=== PATIENT | female | born 1935 | race Caucasian/White ===

== ENCOUNTER 2017-03-28 10:40 | Inpatient (IN) | payer MEDICARE ==
[2017-03-28] MEDS ORDERED: Sodium Chloride 0.9% 1,000 ML IV SCH (12:00)
--- NOTE | 2017-03-28 12:54 | HP ---
ADMITTING PHYSICIAN: Dr. Travis Grover CHIEF COMPLAINT: Postoperative bleeding left distal thigh. HISTORY OF PRESENT ILLNESS: Zonia is an 82-year-old white female who is in the subacute recovery phase of an open reduction internal fixation left distal femoral periprosthetic fracture utilizing a periarticular plate. She has been convalescing in a retirement for the last couple of weeks. Ap parently she had some swelling in the left thigh and her wound dehisced earlier this morning and she was taken to the emergency room in [place] where plain radiographs were obtained and after the bloo dy dehiscence was noted there was a screw head visible through the incision and proud by about 5 mm. She was transferred to [facility] where her surgery was performed a couple of weeks ago by Dr. Powell and Dr. Grover. We have been consulted to reevaluate and plain radi ographs accompany the patient which demonstrate failure of her distal construct to include varus ang ulation of the fracture site and backing out of locking screws. PAST MEDICAL HISTORY: Severe osteopenia, congestive heart failure, coronary valve disorder, hyperte nsion. PAST SURGICAL HISTORY: Most recent was an open reduction internal fixation of the left distal femor al periprosthetic fracture, total knee arthroplasty, cardiac pacemaker implantation and hysterectomy . REVIEW OF SYSTEMS: A recent sonogram performed in the emergency room demonstrated a DVT in the left lower extremity. She has not been walking, but she has been mobilizing with physical therapy in [facility] retirement. PHYSICAL EXAMINATION: GENERAL: An elderly female appearing stated age, in no apparent distress. She is alert and oriente d to person, place, time, and situation, and appropriate with examiner. HEENT: Head is normocephalic, atraumatic. HEART: Distant heart sounds, regular rate, no ectopy noted. ABDOMEN: Soft, benign. She has a midline sternotomy incision healed and closed. MUSCULOSKELETAL: Visual inspection of left lower extremity demonstrates her to have circumferential profound swelling noted from the inguinal crease distal to about mid calf. Her operative site has anna intact in the proximal most incisions, but her distal incision for fracture access demonstra katarzyna a 5 mm headset screw, proud about 5 mm. There is no active bleeding, but some scant drainage is noted. No gross erythema is appreciated. She is neurovascularly intact in the involved extremity. IMAGING STUDIES: From [facility] dated 03/28/2017 demonstrate fracture, failure with v arus angulation distally. She has backing out of all locking screws and 2 screws are proud from the plate indicative of non-lock. IMPRESSION: 1. Left distal femoral periprosthetic fracture, subacute failure. 2. Internal hardware failure. 3. Left lower extremity deep vein thrombosis. 4. Congestive heart failure. 5. Advanced age. PLAN: 1. The patient will be admitted to third floor. 2. The risks, benefits, options, alternatives, and rationale for proceeding with removal and explan tation of selected hardware to include the locking screws and possible closed manipulation, evacuati on of hematoma and a long leg immobilizer placement with consideration of a closed treatment plan at this point. 3. Please see orders.
--- NOTE | 2017-03-28 13:08 | ULT ---
LEFT LOWER EXTREMITY VENOUS DOPPLER ULTRASOUND EVALUATION: Date: 03/28/17 HISTORY: Patient with recent left lower extremity surgery. TECHNIQUE: Multiple longitudinal and transverse images of the left lower extremity venous system is obtained us ing a multihertz linear array transducer. Real-time, color flow, and spectral waveform Doppler irene sis used to evaluate the left lower extremity venous system. FINDINGS/IMPRESSION: There is noncompressible acute clot in the left common femoral, superficial femoral vein, and left p opliteal vein. No evidence of flow is seen. Findings concerning for acute left lower extremity clot. Below the knee, there is some flow seen in the deep venous system. It is noted that the images are mislabeled by the technologist. They actually are of the left lower extremity and were mislabeled as right. I rechecked with the technologist, Harry, who stated that ind eed he had scanned the left lower extremity and mislabeled them as right. Findings discussed with Dr. Jones at 1211 hours on 03/28/17. CODE CR. POS: DESTINEE
[2017-03-28 13:18] LABS: #Basophils 0.1 thou/uL (0.0-0.2); #Lymphocytes 1.7 thou/uL (1.20-3.40); #Monocytes 2.2 thou/uL (0.11-0.59); #Neutrophils 12.4 thou/uL (1.40-6.50); %Basophils 0.4 % (0.0-1.0); %Eosinophils 0.3 % (0.0-10.0); %Lymphocytes 10.1 % (21.0-51.0); %Monocytes 13.6 % (0.0-10.0); Mean Platelet Volume 7.9 fL (7.4-10.4); White Blood Cell (WBC) Count 16.4 thou/uL (4.8-10.8)
[2017-03-28 13:42] LABS: Anion Gap 17 mmol/L (10-20); BUN (Urea Nitrogen) 30 mg/dL (9.8-20.1); Calc. Creatinine Clearance 0 mL/min (70-130); Calcium 8.6 mg/dL (7.8-10.44); Carbon Dioxide 21 mmol/L (23-31); Chloride 100 mmol/L (98-107); Estimated GFR-MDRD 68
[2017-03-28 14:37] VITALS: BMI 30.4
[2017-03-28] MEDS ORDERED: Fentanyl 100 MCG/2 ML VIAL ONE (16:02)
--- NOTE | 2017-03-28 20:00 | CON ---
DATE OF ADMISSION: 03/28/2017 DATE OF CONSULTATION: 03/28/2017 ATTENDING PHYSICIAN: Travis Grover M.D. REASON FOR CONSULTATION: Evaluate patient for inferior vena cava filter. HISTORY OF PRESENT ILLNESS: Ms. Griffith is an 82-year-old woman who on 03/09/2017 underwent an O RIF of a left periprosthetic femur fracture. She has been convalescing in a penitentiary since that time. She presented with swelling of her leg and had dehiscence of the wound and dehiscence of the ORIF. She had ultrasound performed in the emergency department showing common femoral deep venous thrombosis. I have been asked to see her for vena cava filter placement. Currently, the patient is asymptomatic, resting comfortably on third floor in bed. PAST MEDICAL HISTORY: 1. Congestive heart failure. 2. Aortic stenosis. 3. Hypertension. 4. Osteoporosis. PAST SURGICAL HISTORY: 1. ORIF left femur. 2. Left total knee. 3. Pacemaker. 4. Hysterectomy. HOME MEDICATIONS: Noted. ALLERGIES: None. PHYSICAL EXAMINATION: GENERAL: This is an elderly, very frail appearing woman resting comfortably in bed. LUNGS: Clear bilaterally. HEART: Rhythm is regular. ABDOMEN: Soft and nontender. VASCULAR: She has palpable femoral pulses bilaterally, left leg is edematous, more so than the righ t. LABORATORY DATA: Her hemoglobin is 10.5, white blood cell count is 16.4, creatinine is 0.80, and po tassium is 5.0. ASSESSMENT AND PLAN: An 82-year-old woman with left distal femur fracture in need of further treatm ent. She also has a left deep vein thrombosis and is unable to be anticoagulated currently. She wi ll need manipulation of her left leg. I have suggested we place a permanent inferior vena cava filt er and she is agreeable to proceed tomorrow first thing in the morning.
[2017-03-28] MEDS: HYDROcodone/Acetaminophen 5/325 mg Tablet PO PRN (23:10)
[2017-03-29] MEDS ORDERED: Iopamidol 370 76% 50 ML VIAL FS ONE ×2 (00:53→16:51)
[2017-03-29] MEDS: traMADol HCl 50 MG TAB PO SCH ×4 (04:12→23:45)
[2017-03-29] MEDS: Acetaminophen 325 MG TAB PO SCH ×4 (04:12→23:45)
[2017-03-29] MEDS ORDERED: Alendronate Sodium 70 mg Tablet PO SCH (06:00)
--- NOTE | 2017-03-29 07:31 | OP ---
DATE OF PROCEDURE: 03/29/2017 PREOPERATIVE DIAGNOSIS: Left deep venous thrombosis with contraindication to anticoagulation. POSTOPERATIVE DIAGNOSIS: Left deep venous thrombosis with contraindication to anticoagulation. PROCEDURES: 1. Inferior vena cavogram. 2. Inferior vena cava filter placement -- TrapEase. SURGEON: Adalid Grossman M.D. CONTRAST: 8 mL. FLUORO TIME: 0.3 minutes. PROCEDURE IN DETAIL: After consent was obtained, the patient was brought to the Substation Manager, placed in supine position on the lab head table. Appropriate monitoring was placed. Groins were prepped and draped in usual sterile fashion. Using ultrasound guidance, the right groin was anesthetized with 1% lidocaine. Percutaneous access to the right common femoral vein was obtained with ultrasound arvind dance. Guidewire was passed into the upper vena cava. Vena caval sheath was then placed in the daisy a cava at the level of L4. Hand injected vena cavogram was performed. The renal veins were located at the L1-L2 junction. Vena cava measured less than 2.5 cm in diameter. The TrapEase filter was p ositioned with its tip at the L1-L2 junction. Filter was deployed and seated nicely. Sheath was re moved and manual pressure held for hemostasis. The patient tolerated the procedure well and was tra nsferred back to her room in stable condition.
[2017-03-29] MEDS ORDERED: MSM PO SCH (09:00)
[2017-03-29] MEDS ORDERED: CHONDROITIN PO SCH (09:00)
[2017-03-29] MEDS ORDERED: GLUCOSAMINE PO SCH (09:00)
[2017-03-29] MEDS: Meloxicam 15 MG TAB PO SCH (09:20)
[2017-03-29] MEDS: Polyethylene Glycol 3350 17 GM Packet PO SCH (09:21)
[2017-03-29] MEDS: Multivit, Therapeutic 1 TAB PO SCH (09:21)
[2017-03-29] MEDS: Mirtazapine 30 MG TAB PO SCH (09:21)
[2017-03-29] MEDS: Ferrous Fumarate 324 MG TAB PO SCH ×2 (09:21→17:30)
[2017-03-29] MEDS: Furosemide 20 MG TAB PO SCH (09:21)
[2017-03-29] MEDS: Senokot S 8.6-50 MG TAB PO SCH ×2 (09:22→20:10)
--- NOTE | 2017-03-29 12:14 | CON ---
DATE OF CONSULTATION: 03/29/2017 PRIMARY CARE PHYSICIAN: Dr. Sherwood in [place]. ADMITTING PHYSICIAN: Dr. Grover, Orthopedic Surgery. REASON FOR CONSULTATION: Medical management in a complicated patient. HISTORY OF PRESENT ILLNESS: The patient had open reduction and internal fixation of a traumatic dis [place] left femur on 03/09/2017. She had been convalescing in a facility. She was noted to have a ten indu, red, swollen left leg. She was evaluated and found to have deep vein thrombosis extensively in the left femoral system. She was also found to have screws protruding from the skin from the surge ry. Due to the risk of bleeding with further surgeries an IVC filter had been placed by Dr. Adalid Grossman 03/29/2017. The patient currently complains of the pain, swelling, and redness in her left lower leg from the knee down. She has had no signs and symptoms of a pulmonary embolus including no chest pain, shortness of breath, hemoptysis. PAST MEDICAL HISTORY: Includes aortic stenosis, post-aortic valve replacement, atrial fibrillation, status post pacemaker placement, history of breast cancer, post-reduction chemotherapy carotid sten osis, osteoarthritis, hypertension, dyslipidemia. PAST SURGICAL HISTORY: Includes bilateral carotid endarterectomy, total knee arthroplasty bilateral ly, aortic valve replacement, breast lumpectomy, pacemaker placement. CURRENT MEDICATIONS: At the time of admission, tramadol 100 mg p.o. q.6 h. p.r.n., Zocor 40 mg at b edtime, MiraLax 17 grams daily p.r.n., Remeron 30 mg a day, metoprolol 25 mg a day, Meloxicam 15 mg a day, gabapentin 100 mg at bedtime, Lasix 20 mg a day, ferrous sulfate 325 mg p.o. b.i.d., alendron ate 70 mg q.7 days. ALLERGIES: No known drug allergies. FAMILY HISTORY: Mother of cancer, father of congestive heart failure. She has had 3 brot hers of coronary artery disease. SOCIAL HISTORY: x20 years. No tobacco. She drinks beer and wine occasionally. REVIEW OF SYSTEMS: GENERAL: No headaches, dizziness, fainting, no fever or chills. EYES: No double vision, blurred vision, flashing lights. ENT: No ear pain or drainage. No nasal bleeding. No trouble swallowing. CARDIAC: No chest pain, orthopnea or paroxysmal nocturnal dyspnea. RESPIRATORY: No cough, wheezing or asthma. GASTROINTESTINAL: No nausea, vomiting, abdominal pain, diarrhea or constipation at this time, altho ugh she has taken laxatives for constipation when on pain medicines. GENITOURINARY: No hematuria or dysuria. MUSCULOSKELETAL: Pain and swelling in her left lower leg with a wound on her area of her knee from protruding hardware. NEUROLOGIC: No strokes, seizures or focal weakness. PSYCHIATRIC: No anxiety or depression. SKIN: No bruising, bleeding or rash. HEME/LYMPH: No tender or swollen lymph nodes in axilla, inguinal or cervical area. PHYSICAL EXAMINATION: VITAL SIGNS: Temperature 97.7, pulse 80 plus or minus, respirations 12-20, blood pressure 117/69 to -102/64. GENERAL: Alert, oriented, pleasant, cooperative, in no distress. HEENT: Reveal pupils equal, round, and reactive to light. Extraocular movements are intact. Scler ae white. Tympanic membranes clear. Nose clear. Oral mucous membranes are wet. There are multipl e missing teeth. NECK: Supple, without jugular venous distention, adenopathy or thyromegaly. CHEST: Clear to auscultation and percussion. HEART: Regular rate and rhythm. First and second heart sounds were clear. There is a 3/6 murmur a cross the left sternum. ABDOMEN: Soft, bowel sounds are normal. There is no hepatosplenomegaly, no mass, no rebound. EXTREMITIES: Upper extremities reveal no cyanosis, clubbing or edema. Lower extremities, right leg : No cyanosis, clubbing or edema. Left leg revealed a nonpitting edema from the foot to the knee w ith some mild tenderness and erythema. PULSES: Carotid, radial, femoral pulses are intact. Right pedal pulse was palpable. Left pedal pu lse was difficultly palpable through the edema. SKIN: Warm and dry. There is an open lesion about her left knee and mild erythema of the skin of h er left lower leg. HEME/LYMPH: No tender or swollen lymph nodes in axilla, inguinal or cervical area. NEUROLOGICAL: Cranial nerves II-XII are intact. Moves all extremities. Sensation is intact. X-RAY FINDINGS: EKG which reveals atrial sensing and ventricular pacing dual chamber pacemaker revi ewed by myself. Vascular ultrasound reveals left DVT. LABORATORY: CBC: Elevated white count 16.4, hemoglobin 10.5, platelet count 231,000. Sodium was 1 33, potassium 5.0, CO2 is 21, BUN 30, creatinine 0.8, blood sugar 97. ADMITTING DIAGNOSES: 1. Deep venous thrombosis. 2. Three weeks post open reduction and internal fixation of traumatic fracture of the left distal f emur. 3. Aortic stenosis with prosthetic aortic valve. 4. Atrial fibrillation. 5. Pacemaker. 6. Dyslipidemia. 7. Breast cancer post-lumpectomy and radiation. PLAN: Difficult situation. The patient with high risk for pulmonary emboli from left DVT. A left IVC filter has been placed so that the intended anticoagulation can be delayed while continuing work is done on the hardware. She will be continued on selected home medicines. We will monitor her cl osely. Thank you for the consult.
[2017-03-29] MEDS: Gabapentin 100 MG CAP PO SCH (20:11)
[2017-03-29] MEDS: Atorvastatin Calcium 20 MG TAB PO SCH (20:11)
[2017-03-30] MEDS: Acetaminophen 325 MG TAB PO SCH ×3 (06:27→18:08)
[2017-03-30] MEDS: traMADol HCl 50 MG TAB PO SCH ×3 (06:27→18:07)
[2017-03-30 07:16] LABS: #Basophils 0.1 thou/uL (0.0-0.2); #Eosinphils 0.8 thou/uL (0.0-0.7); #Lymphocytes 1.4 thou/uL (1.20-3.40); #Monocytes 1.9 thou/uL (0.11-0.59); #Neutrophils 9.5 thou/uL (1.40-6.50); %Basophils 0.4 % (0.0-1.0); %Eosinophils 5.6 % (0.0-10.0); %Lymphocytes 10.5 % (21.0-51.0); %Monocytes 13.8 % (0.0-10.0); Hematocrit 28.6 % (36.0-47.0); Mean Platelet Volume 8.4 fL (7.4-10.4); Red Blood Cell (RBC) Count 2.96 mill/uL (4.20-5.40); White Blood Cell (WBC) Count 13.6 thou/uL (4.8-10.8)
[2017-03-30 07:35] LABS: Polychromasia SLIGHT = 2-3 cells (100X) (0-2/hpf)
[2017-03-30] MEDS ORDERED: Fentanyl 100 MCG/2 ML VIAL ONE ×2 (08:59→12:19)
--- NOTE | 2017-03-30 09:29 | PDOC.PN ---
- Subjective Encounter Start Date: 03/30/17 Encounter Start Time: 15:26 Subjective: post op, some post anesthesia confusion - Objective Vital Signs & Weight: Vital Signs (12 hours) Temp Pulse Resp BP Pulse Ox 03/30/17 04:29 97.9 F 91 18 110/73 100 03/29/17 23:55 97.6 F 84 19 107/67 100 Weight Weight 199 lb 15.348 oz I&O: 03/29/17 03/30/17 03/31/17 06:59 06:59 06:59 Intake Total 700 2080 Output Total 600 725 Balance 100 1355 Result Diagrams: 03/30/17 06:47 03/28/17 13:11 Phys Exam - Physical Examination Constitutional: NAD Neck: no JVD Respiratory: clear to auscultation bilateral Cardiovascular: RRR 3/6 sys murmur Gastrointestinal: soft, positive bowel sounds Musculoskeletal: edema present Dx/Plan (1) DVT (deep venous thrombosis) Code(s): I82.409 - ACUTE EMBOLISM AND THOMBOS UNSP DEEP VN UNSP LOWER EXTREMITY Status: Acute Qualifiers: DVT location: lower extremity Affected thrombotic vein of extremity: femoral Chronicity: acute Laterality: left Qualified Code(s): I82.412 - Acute embolism and thrombosis of left femoral vein (2) HTN (hypertension) Code(s): I10 - ESSENTIAL (PRIMARY) HYPERTENSION Status: Chronic Qualifiers: Hypertension type: essential hypertension Qualified Code(s): I10 - Essential (primary) hypertension (3) Aortic stenosis Code(s): I35.0 - NONRHEUMATIC AORTIC (VALVE) STENOSIS Status: Chronic Qualifiers: Cardiac valve disease etiology: etiology unspecified Qualified Code(s): I35.0 - Nonrheumatic aortic (valve) stenosis (4) H/O prosthetic aortic valve replacement Code(s): Z95.2 - PRESENCE OF PROSTHETIC HEART VALVE Status: Chronic (5) Dyslipidemia Code(s): E78.5 - HYPERLIPIDEMIA, UNSPECIFIED Status: Chronic (6) S/P IVC filter Status: Acute - Plan SP removal of ORIF hardware L femur, some agitation, will monitor -: cont selected home meds -: discuss anticoag with ortho * .
[2017-03-30] MEDS: Ferrous Fumarate 324 MG TAB PO SCH ×2 (09:46→18:17)
[2017-03-30] MEDS: Meloxicam 15 MG TAB PO SCH (09:46)
[2017-03-30] MEDS: Senokot S 8.6-50 MG TAB PO SCH ×2 (09:47→20:59)
[2017-03-30] MEDS: Mirtazapine 30 MG TAB PO SCH (09:47)
[2017-03-30] MEDS: Multivit, Therapeutic 1 TAB PO SCH (09:47)
[2017-03-30] MEDS: Furosemide 20 MG TAB PO SCH (09:47)
[2017-03-30] MEDS: Polyethylene Glycol 3350 17 GM Packet PO SCH (09:47)
[2017-03-30] MEDS ORDERED: Propofol 200 MG/20 ML VIAL ONE (10:25)
[2017-03-30] MEDS ORDERED: Ondansetron HCl/PF 4 MG/2 ML Vial ONE (10:25)
[2017-03-30] MEDS ORDERED: Dexamethasone 20 MG/5 ML VIAL ONE (10:25)
[2017-03-30] MEDS ORDERED: Lidocaine 1% PF 5 ML VIAL ONE (10:25)
--- NOTE | 2017-03-30 14:39 | OP ---
DATE OF OPERATION: 03/30/2017 OPERATIONS: 1. Left femur hardware removal. 2. Irrigation and debridement of left thigh wound. PREOPERATIVE DIAGNOSIS: Left distal femur fracture with hardware loosening and wound drainage. POSTOPERATIVE DIAGNOSIS: Left distal femur fracture with hardware loosening and wound drainage. COMPLICATIONS: None. ESTIMATED BLOOD LOSS: 150 mL SURGEON: Thomas Powell M.D. [employer] UNIT OPERATOR: Josh Sung PA-C INDICATIONS: Ms. Griffith is an 82-year-old female who sustained a fall several weeks ago. She f ractured her distal femur above a total knee arthroplasty. She was treated initially with open redu ction internal fixation using a lateral plate. Unfortunately, her lateral plate has loosened and sh elkin has developed loss of fixation with wound drainage. She has been indicated now for the above proc edures to relieve pain and remove loose and hardware to prevent any further complication. Risks hav e been reviewed in detail. She has elected to proceed with the operation. DESCRIPTION OF PROCEDURE: Ms. Griffith was identified in the preoperative holding area. Her alfredo ect extremity was marked. She was carried to the operating room. She was positioned supine. Gener al anesthesia was induced. A multidisciplinary timeout was performed. The left lower extremity was prepped and draped in sterile fashion. We began the procedure with by extending the patient's distal wound. We worked deeply down to the f ascia, which was opened. We then exposed the underlying plate and loosened distal femoral screws. We removed all the distal screws using appropriate screwdriver. We then removed the proximal screws throughout the plate using small percutaneous incisions and x-ray guidance. All screws were remove d. We then removed the distal femoral plate from the wound. At this point, we thoroughly irrigated with copious lavage. We then took x-ray images once more confirming that the bone was in adequate alignment. After final debridement, we closed with #1 Vicryl suture, 2-0 Vicryl suture and nylon mix tures for the skin. A sterile dressing was applied. The patient was taken to the recovery room in good condition without complication at this point.
--- NOTE | 2017-03-30 14:47 | RAD ---
2 VIEWS LEFT FEMUR: Date: 03/30/17 COMPARISON: 03/09/17. FINDINGS/IMPRESSION: A single limited intraoperative fluoroscopic view of the left femur was submitted for interpretation . The previously seen screws along the femoral plate have been removed, except for the proximal most screw. POS: DESTINEE
[2017-03-30] MEDS: HYDROcodone/Acetaminophen 5/325 mg Tablet PO PRN (15:01)
--- NOTE | 2017-03-30 18:19 | PDOC.EVN ---
Event Note - Event Note Event Note: post anesthesiaconfusion resolved., without tx
[2017-03-30] MEDS: Gabapentin 100 MG CAP PO SCH (20:59)
[2017-03-30] MEDS: Atorvastatin Calcium 20 MG TAB PO SCH (20:59)
[2017-03-30] MEDS: Enoxaparin Sodium 30 MG/0.3 ML SYRINGE SC SCH (20:59)
[2017-03-31] MEDS: Acetaminophen 325 MG TAB PO SCH ×4 (00:09→18:06)
[2017-03-31] MEDS: traMADol HCl 50 MG TAB PO SCH ×4 (00:09→18:06)
[2017-03-31 06:05] LABS: Hematocrit 23.3 % (36.0-47.0)
[2017-03-31 06:18] LABS: Anion Gap 14 mmol/L (10-20); BUN (Urea Nitrogen) 25 mg/dL (9.8-20.1); Calc. Creatinine Clearance 84 mL/min (70-130); Calcium 8.1 mg/dL (7.8-10.44); Carbon Dioxide 22 mmol/L (23-31); Chloride 106 mmol/L (98-107); Estimated GFR-MDRD 78
[2017-03-31] MEDS: Enoxaparin Sodium 30 MG/0.3 ML SYRINGE SC SCH ×2 (09:43→20:33)
[2017-03-31] MEDS: Furosemide 20 MG TAB PO SCH (09:43)
[2017-03-31] MEDS: Mirtazapine 30 MG TAB PO SCH (09:44)
[2017-03-31] MEDS: Multivit, Therapeutic 1 TAB PO SCH (09:44)
[2017-03-31] MEDS: Senokot S 8.6-50 MG TAB PO SCH ×2 (09:44→20:34)
[2017-03-31] MEDS: Meloxicam 15 MG TAB PO SCH (09:45)
[2017-03-31] MEDS: HYDROcodone/Acetaminophen 5/325 mg Tablet PO PRN ×2 (09:45→15:50)
[2017-03-31] MEDS: Ferrous Fumarate 324 MG TAB PO SCH ×2 (09:45→18:06)
[2017-03-31] MEDS: Polyethylene Glycol 3350 17 GM Packet PO SCH (09:47)
--- NOTE | 2017-03-31 11:42 | PDOC.PN ---
- Subjective Encounter Start Date: 03/31/17 Encounter Start Time: 11:40 Subjective: no fever, sob - Objective MAR Reviewed: Yes Vital Signs & Weight: Vital Signs (12 hours) Temp Pulse Pulse Resp BP BP Pulse Ox 03/31/17 10:38 97.5 F L 76 16 104/62 03/31/17 10:32 97.8 F 76 16 124/72 100 03/31/17 07:00 98.8 F 76 18 124/72 100 03/31/17 04:00 98.7 F 72 19 99/61 96 03/31/17 00:00 98.7 F 76 18 90/51 L 99 Weight Weight 199 lb 15.348 oz I&O: 03/30/17 03/31/17 04/01/17 06:59 06:59 06:59 Intake Total 2080 400 0 Output Total 725 820 Balance 1355 -420 0 Result Diagrams: 03/31/17 05:36 03/31/17 05:36 Phys Exam - Physical Examination Constitutional: NAD Neck: no JVD Respiratory: clear to auscultation bilateral Cardiovascular: RRR 3/6 sys murmur Gastrointestinal: soft, positive bowel sounds Musculoskeletal: no edema Dx/Plan (1) DVT (deep venous thrombosis) Code(s): I82.409 - ACUTE EMBOLISM AND THOMBOS UNSP DEEP VN UNSP LOWER EXTREMITY Status: Acute Qualifiers: DVT location: lower extremity Affected thrombotic vein of extremity: femoral Chronicity: acute Laterality: left Qualified Code(s): I82.412 - Acute embolism and thrombosis of left femoral vein (2) HTN (hypertension) Code(s): I10 - ESSENTIAL (PRIMARY) HYPERTENSION Status: Chronic Qualifiers: Hypertension type: essential hypertension Qualified Code(s): I10 - Essential (primary) hypertension (3) Aortic stenosis Code(s): I35.0 - NONRHEUMATIC AORTIC (VALVE) STENOSIS Status: Chronic Qualifiers: Cardiac valve disease etiology: etiology unspecified Qualified Code(s): I35.0 - Nonrheumatic aortic (valve) stenosis (4) H/O prosthetic aortic valve replacement Code(s): Z95.2 - PRESENCE OF PROSTHETIC HEART VALVE Status: Chronic (5) Dyslipidemia Code(s): E78.5 - HYPERLIPIDEMIA, UNSPECIFIED Status: Chronic (6) S/P IVC filter Status: Acute (7) Anemia, blood loss Code(s): D50.0 - IRON DEFICIENCY ANEMIA SECONDARY TO BLOOD LOSS (CHRONIC) Status: Acute - Plan transfusion PRBC per ortho -: jigna byers -: will follow * .
[2017-03-31] MEDS: Atorvastatin Calcium 20 MG TAB PO SCH (20:33)
[2017-03-31] MEDS: Gabapentin 100 MG CAP PO SCH (20:34)
[2017-03-31] MEDS ORDERED: Enoxaparin Sodium 40 MG/0.4 ML SYRINGE SC SCH (21:00)
[2017-04-01] MEDS: Acetaminophen 325 MG TAB PO SCH ×4 (00:47→18:18)
[2017-04-01] MEDS: traMADol HCl 50 MG TAB PO SCH ×4 (00:48→18:18)
[2017-04-01 06:19] LABS: #Eosinphils 0.5 thou/uL (0.0-0.7); #Lymphocytes 1.7 thou/uL (1.20-3.40); #Monocytes 1.1 thou/uL (0.11-0.59); #Neutrophils 4.9 thou/uL (1.40-6.50); %Basophils 0.3 % (0.0-1.0); %Eosinophils 6.1 % (0.0-10.0); %Lymphocytes 20.8 % (21.0-51.0); %Monocytes 13.2 % (0.0-10.0); Hematocrit 25.6 % (36.0-47.0); Mean Platelet Volume 7.3 fL (7.4-10.4); Red Blood Cell (RBC) Count 2.65 mill/uL (4.20-5.40); White Blood Cell (WBC) Count 8.2 thou/uL (4.8-10.8)
[2017-04-01] MEDS: Ferrous Fumarate 324 MG TAB PO SCH ×2 (08:00→18:18)
[2017-04-01] MEDS: Mirtazapine 30 MG TAB PO SCH (09:58)
[2017-04-01] MEDS: Meloxicam 15 MG TAB PO SCH (09:58)
[2017-04-01] MEDS: Multivit, Therapeutic 1 TAB PO SCH (10:00)
[2017-04-01] MEDS: Senokot S 8.6-50 MG TAB PO SCH ×2 (10:00→20:12)
[2017-04-01] MEDS: Furosemide 20 MG TAB PO SCH (10:00)
[2017-04-01] MEDS: Enoxaparin Sodium 30 MG/0.3 ML SYRINGE SC SCH ×2 (10:01→20:36)
[2017-04-01] MEDS: Polyethylene Glycol 3350 17 GM Packet PO SCH (10:01)
--- NOTE | 2017-04-01 12:06 | PDOC.PN ---
- Subjective Encounter Start Date: 04/01/17 Encounter Start Time: 12:01 Subjective: no chest pain, sob, fever - Objective MAR Reviewed: Yes Vital Signs & Weight: Vital Signs (12 hours) Temp Pulse Resp BP Pulse Ox 04/01/17 07:24 97.9 F 78 14 108/65 100 04/01/17 04:21 97.4 F L 75 12 107/68 100 Weight Weight 199 lb 15.348 oz I&O: 03/31/17 04/01/17 04/02/17 06:59 06:59 06:59 Intake Total 400 841 Output Total 820 1650 Balance -420 -809 Result Diagrams: 04/01/17 06:04 03/31/17 05:36 Phys Exam - Physical Examination Constitutional: NAD Neck: no JVD Respiratory: clear to auscultation bilateral Cardiovascular: RRR Gastrointestinal: soft, positive bowel sounds Musculoskeletal: no edema Dx/Plan (1) DVT (deep venous thrombosis) Code(s): I82.409 - ACUTE EMBOLISM AND THOMBOS UNSP DEEP VN UNSP LOWER EXTREMITY Status: Acute Qualifiers: DVT location: lower extremity Affected thrombotic vein of extremity: femoral Chronicity: acute Laterality: left Qualified Code(s): I82.412 - Acute embolism and thrombosis of left femoral vein (2) HTN (hypertension) Code(s): I10 - ESSENTIAL (PRIMARY) HYPERTENSION Status: Chronic Qualifiers: Hypertension type: essential hypertension Qualified Code(s): I10 - Essential (primary) hypertension (3) Aortic stenosis Code(s): I35.0 - NONRHEUMATIC AORTIC (VALVE) STENOSIS Status: Chronic Qualifiers: Cardiac valve disease etiology: etiology unspecified Qualified Code(s): I35.0 - Nonrheumatic aortic (valve) stenosis (4) H/O prosthetic aortic valve replacement Code(s): Z95.2 - PRESENCE OF PROSTHETIC HEART VALVE Status: Chronic (5) Dyslipidemia Code(s): E78.5 - HYPERLIPIDEMIA, UNSPECIFIED Status: Chronic (6) S/P IVC filter Status: Acute (7) Anemia, blood loss Code(s): D50.0 - IRON DEFICIENCY ANEMIA SECONDARY TO BLOOD LOSS (CHRONIC) Status: Acute - Plan on lovenox, discuss full anticoag with ortho -: post ivc filter -: cont lipitor , lasix, metoprolol * .
[2017-04-01] MEDS: Atorvastatin Calcium 20 MG TAB PO SCH (20:12)
[2017-04-01] MEDS: Gabapentin 100 MG CAP PO SCH (20:12)
[2017-04-02] MEDS: Acetaminophen 325 MG TAB PO SCH ×5 (01:09→23:46)
[2017-04-02] MEDS: traMADol HCl 50 MG TAB PO SCH ×5 (01:10→23:46)
[2017-04-02 05:53] LABS: #Eosinphils 0.6 thou/uL (0.0-0.7); #Lymphocytes 1.2 thou/uL (1.20-3.40); #Neutrophils 4.9 thou/uL (1.40-6.50); %Basophils 0.6 % (0.0-1.0); %Eosinophils 8.3 % (0.0-10.0); %Lymphocytes 15.5 % (21.0-51.0); %Monocytes 12.8 % (0.0-10.0); Hematocrit 24.8 % (36.0-47.0); Mean Platelet Volume 7.2 fL (7.4-10.4); Red Blood Cell (RBC) Count 2.56 mill/uL (4.20-5.40); White Blood Cell (WBC) Count 7.8 thou/uL (4.8-10.8)
[2017-04-02] MEDS ORDERED: Morphine Sulfate 2 MG/ML SYRINGE SLOW IVP PRN (09:11)
[2017-04-02] MEDS: Ferrous Fumarate 324 MG TAB PO SCH ×2 (09:34→17:19)
[2017-04-02] MEDS: Meloxicam 15 MG TAB PO SCH (09:34)
[2017-04-02] MEDS: Multivit, Therapeutic 1 TAB PO SCH (09:34)
[2017-04-02] MEDS: Mirtazapine 30 MG TAB PO SCH (09:34)
[2017-04-02] MEDS: Polyethylene Glycol 3350 17 GM Packet PO SCH (09:35)
[2017-04-02] MEDS: Enoxaparin Sodium 30 MG/0.3 ML SYRINGE SC SCH (09:35)
[2017-04-02] MEDS: Furosemide 20 MG TAB PO SCH (09:35)
[2017-04-02] MEDS: Senokot S 8.6-50 MG TAB PO SCH ×2 (09:36→20:28)
--- NOTE | 2017-04-02 11:37 | PDOC.PN ---
- Subjective Encounter Start Date: 04/02/17 Encounter Start Time: 11:34 Subjective: doing well - Objective MAR Reviewed: Yes Vital Signs & Weight: Vital Signs (12 hours) Temp Pulse Resp BP Pulse Ox 04/02/17 08:01 98.9 F 88 18 04/02/17 08:00 98.9 F 88 18 98/59 L 97 04/02/17 04:00 98.5 F 90 20 120/67 99 04/02/17 00:00 98.2 F 89 16 118/69 100 Weight Weight 199 lb 15.348 oz I&O: 04/01/17 04/02/17 04/03/17 06:59 06:59 06:59 Intake Total 841 920 Output Total 1650 700 Balance -809 220 Result Diagrams: 04/02/17 05:30 03/31/17 05:36 Phys Exam - Physical Examination Constitutional: NAD Neck: no JVD Respiratory: clear to auscultation bilateral Cardiovascular: RRR, no significant murmur Gastrointestinal: soft, positive bowel sounds Musculoskeletal: edema present Dx/Plan (1) DVT (deep venous thrombosis) Code(s): I82.409 - ACUTE EMBOLISM AND THOMBOS UNSP DEEP VN UNSP LOWER EXTREMITY Status: Acute Qualifiers: DVT location: lower extremity Affected thrombotic vein of extremity: femoral Chronicity: acute Laterality: left Qualified Code(s): I82.412 - Acute embolism and thrombosis of left femoral vein (2) HTN (hypertension) Code(s): I10 - ESSENTIAL (PRIMARY) HYPERTENSION Status: Chronic Qualifiers: Hypertension type: essential hypertension Qualified Code(s): I10 - Essential (primary) hypertension (3) Aortic stenosis Code(s): I35.0 - NONRHEUMATIC AORTIC (VALVE) STENOSIS Status: Chronic Qualifiers: Cardiac valve disease etiology: etiology unspecified Qualified Code(s): I35.0 - Nonrheumatic aortic (valve) stenosis (4) H/O prosthetic aortic valve replacement Code(s): Z95.2 - PRESENCE OF PROSTHETIC HEART VALVE Status: Chronic (5) Dyslipidemia Code(s): E78.5 - HYPERLIPIDEMIA, UNSPECIFIED Status: Chronic (6) S/P IVC filter Status: Acute (7) Anemia, blood loss Code(s): D50.0 - IRON DEFICIENCY ANEMIA SECONDARY TO BLOOD LOSS (CHRONIC) Status: Acute - Plan cont home meds -: on lovenox, start eliquis or xarelto when ok with ortho * .
[2017-04-02] MEDS: Atorvastatin Calcium 20 MG TAB PO SCH (20:28)
[2017-04-02] MEDS: Gabapentin 100 MG CAP PO SCH (20:28)
[2017-04-02] MEDS ORDERED: Apixaban 5 MG TAB PO SCH (21:00)
[2017-04-03] MEDS: HYDROcodone/Acetaminophen 5/325 mg Tablet PO PRN (03:39)
[2017-04-03] MEDS: traMADol HCl 50 MG TAB PO SCH (05:42)
[2017-04-03] MEDS: Acetaminophen 325 MG TAB PO SCH (05:42)
[2017-04-03 06:13] LABS: #Eosinphils 0.5 thou/uL (0.0-0.7); #Lymphocytes 1.3 thou/uL (1.20-3.40); #Monocytes 0.9 thou/uL (0.11-0.59); #Neutrophils 5.2 thou/uL (1.40-6.50); %Basophils 0.2 % (0.0-1.0); %Eosinophils 6.6 % (0.0-10.0); %Lymphocytes 16.7 % (21.0-51.0); Hematocrit 25.8 % (36.0-47.0); White Blood Cell (WBC) Count 7.9 thou/uL (4.8-10.8)
[2017-04-03 06:40] LABS: Anion Gap 10 mmol/L (10-20); BUN (Urea Nitrogen) 12 mg/dL (9.8-20.1); Calc. Creatinine Clearance 102 mL/min (70-130); Calcium 8.7 mg/dL (7.8-10.44); Carbon Dioxide 27 mmol/L (23-31); Chloride 105 mmol/L (98-107); Estimated GFR-MDRD Greater than 90
[2017-04-03 09:14] VITALS: BP 131/74; TEMP 97.9
--- NOTE | 2017-04-03 11:27 | PDOC.PN ---
- Subjective Encounter Start Date: 04/03/17 Encounter Start Time: 08:00 Subjective: feels better, was sob last night - Objective MAR Reviewed: Yes Vital Signs & Weight: Vital Signs (12 hours) Temp Pulse Resp BP Pulse Ox 04/03/17 09:13 97.9 F 71 16 131/74 100 04/03/17 04:05 98.4 F 82 16 122/71 99 04/03/17 00:00 97.8 F 88 16 118/75 98 Weight Weight 199 lb 15.348 oz I&O: 04/02/17 04/03/17 04/04/17 06:59 06:59 06:59 Intake Total 920 960 Output Total 700 1300 Balance 220 -340 Result Diagrams: 04/03/17 05:55 04/03/17 05:55 Additional Labs: Accuchecks 04/02/17 18:07 POC Glucose 127 H Phys Exam - Physical Examination HEENT: PERRLA, moist MMs Neck: no JVD, supple Respiratory: no wheezing, no rales Cardiovascular: RRR, no significant murmur Gastrointestinal: soft, non-tender, positive bowel sounds Musculoskeletal: pulses present left LE in splint Neurological: non-focal, moves all 4 limbs Psychiatric: A&O x 3 Dx/Plan (1) Anemia, blood loss Code(s): D50.0 - IRON DEFICIENCY ANEMIA SECONDARY TO BLOOD LOSS (CHRONIC) Status: Acute (2) DVT (deep venous thrombosis) Code(s): I82.409 - ACUTE EMBOLISM AND THOMBOS UNSP DEEP VN UNSP LOWER EXTREMITY Status: Acute Qualifiers: DVT location: lower extremity Affected thrombotic vein of extremity: femoral Chronicity: acute Laterality: left Qualified Code(s): I82.412 - Acute embolism and thrombosis of left femoral vein (3) S/P IVC filter Status: Acute (4) Aortic stenosis Code(s): I35.0 - NONRHEUMATIC AORTIC (VALVE) STENOSIS Status: Chronic Qualifiers: Cardiac valve disease etiology: etiology unspecified Qualified Code(s): I35.0 - Nonrheumatic aortic (valve) stenosis (5) Dyslipidemia Code(s): E78.5 - HYPERLIPIDEMIA, UNSPECIFIED Status: Chronic (6) H/O prosthetic aortic valve replacement Code(s): Z95.2 - PRESENCE OF PROSTHETIC HEART VALVE Status: Chronic (7) HTN (hypertension) Code(s): I10 - ESSENTIAL (PRIMARY) HYPERTENSION Status: Chronic Qualifiers: Hypertension type: essential hypertension Qualified Code(s): I10 - Essential (primary) hypertension - Plan is being discharged to [facility] this morning -: to continue eliquis bid -: PT/OT per ortho advice * .
--- NOTE | 2017-04-03 22:31 | DIS ---
DATE OF ADMISSION: 03/28/2017 DATE OF DISCHARGE: 04/03/2017 DISCHARGE DISPOSITION: To [facility]. PRIMARY DISCHARGE DIAGNOSES: Acute blood loss anemia, deep vein thrombosis in the left lower extremity, status post IVC filter, history of prosthetic aortic valve with stenosis, hypertension, dyslipidemia, recent left femoral periprosthetic fracture with repair with postop bleeding. PROCEDURES DONE DURING HOSPITALIZATION: The patient has had ultrasound venous Doppler done of left lower extremity, which showed extensive DVT. IVC filter was placed by Dr. Adalid Grossman on 03/29/2017. The patient has had left femur hardware removed with irrigation and debridement of left thigh wound done on by Dr. Powell. Discharge H and H 8 and 25, platelet count is 394. Discharge BUN and creatinine is 12 and 0.5. DISCHARGE MEDICATIONS: Alendronate 70 mg p.o. once weekly, Eliquis 5 mg p.o. twice daily, ferrous sulfate 325 mg p.o. twice daily, Lasix 20 mg p.o. daily, gabapentin 100 mg p.o. at bedtime, [place] p.r.n. for pain, Toprol-XL 25 mg daily , mirtazapine 30 mg p.o. daily, multivitamin 1 tab once daily, MiraLax 17 grams p.o. daily, Zocor 40 mg p.o. at bedtime, Ultram p.r.n. for pain. ALLERGIES: No known drug allergies. DISCHARGE PLAN: Patient to follow up with Dr. Powell as advised. BRIEF COURSE DURING HOSPITALIZATION: The patient initially got admitted on the after she was sent over for bleeding in her left distal thigh. She has had ORIF done for left distal periprosthetic fracture in the last few weeks by Dr. Powell. She also was found to have had visible screws. In view of this and left lower extremity edema, she was admitted to medical floor. She has had ultrasound venous Doppler of left lower extremity done, which showed extensive DVT. She has had hardware removal done by Dr. Powell and IVC filter was also placed due to her current postop situation with extensive DVT and poor functional status. She was placed on Eliquis twice daily. [facility] and will be shortly discharged. She needs to follow up with Dr. Powell as advised. She also needs to follow up with primary care physician in 1 week. Please see face to face documentation on [facility] for the day of discharge. NATASHAD
[2017-04-05] MEDS ORDERED: Alendronate Sodium 70 mg Tablet PO SCH (06:00)
--- NOTE | 2017-04-06 20:10 | PQF ---
MICHEL REEDER ANTHONY, MD [id number] [facility] [phone] [id number] CLINICAL DOCUMENTATION CLARIFICATION FORM: POST DISCHARGE PLEASE FAX RESPONSE BACK TO [phone] Addendum to original discharge summary date: ____ Late entry note date: __ DATE: 04/06/2017 ATTN: Quan Powell MD The following CLINICAL INDICATORS - SIGNS / SYMPTOMS are present in the medical record: Op Report Operations: Irrigation and debridement of left thigh wound RISKS: Left distal femur fracture with hardware loosening and wound drainage TREATMENTS: Irrigation and debridement of left thigh wound Please provide a response below if a more specific term indicating a diagnosis and/or acuity level for this condition can be identified. Please exercise your independent, professional judgment in responding to the clarification form. Clinical indicators are provided at the top of this form for your review. . For continuity of documentation, please document condition throughout progress notes and discharge summary. Thank you. [ ] Present on Admission (POA): [ ] Yes [ ] No [ ] Unable to determine [ ] Excisional Debridement: (Definition) Excisional debridement is the surgical removal or cutting away of devitalized tissue, necrosis, or slough. Excisional debridement can be performed in the operating room, emergency room, or at the patient's bedside. ([facility], Fourth 1987) [ ] Excised [ ] Removed [ ] Cut away [ ] Other: Depth / layer: (deepest layer of debridement): [ ] Skin/SubQ[ ] Fascia [ ] Muscle [ ] Bone Margins: (please specify): / x x Instruments used: [ ] Scissors [ ] Scalpel[ ] Curette[ ] Tweezers/ forceps [ ] Soft tissue clipper[ ] Other: [ ] Non-excisional Debridement: (Removal by flushing, brushing, or washing) ( Definition) Nonexcisional debridement is the non-operative brushing, irrigating , scrubbing, or washing of devitalized tissue, necrosis, or slough. Nonexcisional includes snipping of tissue followed by Lainez tank therapy. Nonexcisional debridement may be performed by a nurse, therapist, or physician. ([facility], Fourth 1987) [ ] Incision and Drainage only (No Debridement): Depth:[ ] Skin & Sub Q only[ ] Into soft tissue [ ] Escharectomy [ ] Does not apply to this patient [ ] Unable to determine [ ] Other diagnosis: _ Physician/Provider Signature Date Time (This form is maintained as a part of the permanent medical record) 2014 [employer]. All Rights Reserved [email or web address]
== END 2017-04-03 10:32 | DRG 498 ==
LOC: ERS 10:40 → SURG A 12:23
PROVIDERS: ADMIT Orthopaedic Surgery; ATTEND Orthopaedic Surgery
PROC: 06H03DZ Insertion of Intraluminal Device into Inferior Vena Cava, Percutaneous Approach (ICD-10-PCS; 2017-03-29)
PROC: 0QPC04Z Removal of Internal Fixation Device from Left Lower Femur, Open Approach (ICD-10-PCS; principal; 2017-03-30)
PROC: 0JDP0ZZ Extraction of Left Lower Leg Subcutaneous Tissue and Fascia, Open Approach (ICD-10-PCS; 2017-03-30)
PROC: 30233N1 Transfusion of Nonautologous Red Blood Cells into Peripheral Vein, Percutaneous Approach (ICD-10-PCS; 2017-03-31)
DX: T84.298A Other mechanical complication of internal fixation device of other bones, initial encounter (principal); T81.31XA Disruption of external operation (surgical) wound, not elsewhere classified, initial encounter; I82.402 Acute embolism and thrombosis of unspecified deep veins of left lower extremity; I11.0 Hypertensive heart disease with heart failure; I50.9 Heart failure, unspecified; D62 Acute posthemorrhagic anemia; M96.830 Postprocedural hemorrhage of a musculoskeletal structure following a musculoskeletal system procedure; I48.91 Unspecified atrial fibrillation; E78.5 Hyperlipidemia, unspecified; I35.0 Nonrheumatic aortic (valve) stenosis; M97.12XA Periprosthetic fracture around internal prosthetic left knee joint, initial encounter; Z95.2 Presence of prosthetic heart valve; Z95.0 Presence of cardiac pacemaker; Z92.3 Personal history of irradiation; Z85.3 Personal history of malignant neoplasm of breast; Z82.49 Family history of ischemic heart disease and other diseases of the circulatory system; Y83.8 Other surgical procedures as the cause of abnormal reaction of the patient, or of later complication, without mention of misadventure at the time of the procedure; Y92.234 Operating room of hospital as the place of occurrence of the external cause
CPT/HCPCS: 36415; 36416; 36430; 37191; 76001; 76942; 80048; 85014; 85018; 85025; 86850; 86900; 86901; 87070; 87102; 87205; 87206; 93005; A4216; C1769; G8978-GP-CM; G8979-GP-CL; J0690; J1100; J1644; J1650; J2001; J2405; J2704; J3010; J7050; L1832; P9016

== ENCOUNTER 2018-12-02 13:34 | Inpatient (IN) | payer MEDICARE ==
[2018-12-02 14:18] LABS: #Eosinphils 0.1 thou/uL (0.0-0.7); #Lymphocytes 1.2 thou/uL (1.20-3.40); #Monocytes 0.8 thou/uL (0.11-0.59); #Neutrophils 4.4 thou/uL (1.40-6.50); %Basophils 0.4 % (0.0-1.0); %Eosinophils 0.9 % (0.0-10.0); %Lymphocytes 18.8 % (21.0-51.0); %Monocytes 12.6 % (0.0-10.0); %Neutrophils 67.5 % (42.0-75.0); Hemoglobin 13.7 g/dL (12.0-16.0); Mean Corpuscular HGB CONC 32.8 g/dL (32.0-36.0); Mean Corpuscular Volume 97.5 fL (78.0-98.0); Mean Platelet Volume 7.5 fL (7.4-10.4); Platelet Count 166 thou/uL (130-400); RBC Distribution Width 13.6 % (11.5-14.5); Red Blood Cell (RBC) Count 4.28 mill/uL (4.20-5.40); White Blood Cell (WBC) Count 6.5 thou/uL (4.8-10.8)
--- NOTE | 2018-12-02 14:34 | RAD ---
PORTABLE CHEST 1 VIEW: DATE: 12/02/2018. TIME: 2:10 p.m. HISTORY: Dyspnea. FINDINGS: Comparison is made with the exam of 03/07/2017. Chronic changes in the right hemithorax are again seen. A left-sided pacemaker device and postop annamaria nges in the right axilla and the sternum are again noted. There is evidence of old granulomatous dis ease. No left-sided infiltrates or large pleural effusions are identified. IMPRESSION: No acute process. POS: DESTINEE
[2018-12-02 14:42] LABS: ALT (SGPT) 18 U/L (8-55); AST (SGOT) 21 U/L (5-34); Albumin 3.9 g/dL (3.4-4.8); Alkaline Phosphatase 93 U/L (40-150); Anion Gap 16 mmol/L (10-20); BUN (Urea Nitrogen) 12 mg/dL (9.8-20.1); Bilirubin, Total 1.4 mg/dL (0.2-1.2); Calc. Creatinine Clearance 0 mL/min (70-130); Calcium 9.7 mg/dL (7.8-10.44); Carbon Dioxide 24 mmol/L (23-31); Chloride 98 mmol/L (98-107); Estimated GFR-MDRD 65; Globulin 3.5 g/dL (2.4-3.5); Glucose 91 mg/dL (83-110); Potassium 4.2 mmol/L (3.5-5.1); Protein, Total 7.4 g/dL (6.0-8.3); Sodium 134 mmol/L (136-145)
[2018-12-02] MEDS ORDERED: Furosemide 40 MG/4 ML VIAL ONE (15:21)
[2018-12-02] MEDS ORDERED: Nitroglycerin 2% Ointment 1 INCH/1 GM Packet ONE (15:21)
[2018-12-02] MEDS ORDERED: Aspirin Chewable 81 MG TAB ONE (15:21)
[2018-12-02 15:28] LABS: CK (CPK) 51 U/L (29-168); Lipase 16 U/L (8-78)
[2018-12-02] MEDS ORDERED: ISOVUE-370 76%-LOCM 1 ML ONE (16:12)
--- NOTE | 2018-12-02 17:37 | CT ---
Contrast-enhanced CTA chest. HISTORY: Shortness of breath dyspnea. Contrast-enhanced CTA chest performed. 2-D and 3-D reconstruction images performed on an independent 3-D workstation. CTA chest demonstrates extensive right anterior chest wall and right intrathoracic pleural calcificat ions. Right axillary surgical clips seen. The right breast appears to have had previous trauma or surgery. Interval cardiac pacing device seen. Sternotomy wires seen. Coronary artery calcifications present. T he patient has extensive mitral annular calcifications. The distal esophagus is thickened concerning for possible esophagitis or mass. A small amount of fluid or thickening seen in the right major fissure. Right middle lobe ill-defined lung parenchymal spiculated density seen measuring approximately 1.8 cm in diameter. No evidence of filling defects seen in the pulmonary arteries to suggest pulmonary emboli. IMPRESSION: no evidence of pulmonary emboli.
[2018-12-02 18:53] LABS: Troponin I Less than 0.010 ng/mL (< 0.028)
[2018-12-02] MEDS ORDERED: Acetaminophen 650 MG Suppository PR PRN (19:35)
[2018-12-02] MEDS ORDERED: Acetaminophen 325 MG TAB PO PRN (19:35)
[2018-12-02] MEDS: Famotidine/PF 20 mg/2ml Vial SLOW IVP SCH (21:35)
[2018-12-02 22:00] LABS: Troponin I 0.028 ng/mL (< 0.028)
[2018-12-02 22:20] VITALS: BMI 29.2
--- NOTE | 2018-12-03 01:19 | HP ---
CHIEF COMPLAINT: Increased shortness of breath. HISTORY OF PRESENT ILLNESS: Ms. Griffith is an 83-year-old woman with a known history of previous DVT and CHF, who states she has become increasingly short of breath. The patient states she has been short of breath for quite some time, but does not use any oxygen at home and does not smoke. She states she has noted progressive worsening in her shortness of breath for quite sometime; however, according to her daughter has been more noticeable in the last several days. She was diagnosed with the flu several weeks ago and it appears she has not fully recovered with regard to her mobility since then. She uses her walker to get around at home and even with using her walker, feels short of breath. Denies having any associated chest pain or dizziness. Has not had a cough and denies any hemoptysis. She reports having no other issues besides a decreased appetite. She previously had some abdominal discomfort, but denies any abdominal pain at present. Reports having a normal bowel movement yesterday. Denies any blood in her stool. The patient has not had any recent fevers, chills, or sweats. Denies any weight loss. Has not had any palpitations. No urinary symptoms. She does report urinary frequency associated with Lasix. Otherwise, has not had any dysuria, hematuria, or darkening in her urine. In the ED, she has undergone laboratory studies including a D-dimer, which was elevated at 1.15. This prompted a CT angiogram, which demonstrated no evidence of pulmonary emboli. However, she was noted to have thickening of the distal esophagus concerning for possible esophagitis versus mass. The patient has no associated symptoms. No difficulty or painful swallowing. No regurgitation. No issues with reflux. No epigastric discomfort. She was also noted on the CT angiogram to show extensive right anterior chest wall and right intrathoracic pleural calcifications. Also present was a small amount of fluid or thickening seen in the right major fissure of the lungs. The right middle lobe showed an ill-defined lung parenchymal spiculated density measuring approximately 1.8 cm in diameter. The patient was treated for lower extremity edema with Lasix. Admitted for further investigation and management. REVIEW OF SYSTEMS: All other review of systems are negative. She denies having any headaches. No vision changes. PAST MEDICAL HISTORY: 1. Coronary artery disease. 2. CHF. 3. Hyperlipidemia. 4. Hypertension. 5. Coronary artery disease. 6. Permanent pacemaker. 7. Daily alcohol use. PAST SURGICAL HISTORY: 1. Bilateral knee replacement. 2. Pacemaker. 3. Left femur repair. 4. Hysterectomy. 5. Carotid endarterectomy, bilateral. 6. Toe amputation. 7. Aortic valve replacement. SOCIAL HISTORY: The patient denies any smoking or illicit drug use, but does admit to drinking four cans of Natural [employer] beer daily. Denies any history of withdrawal symptoms including tremors. Has never had any withdrawal seizures. ALLERGIES: NO KNOWN DRUG ALLERGIES. CURRENT MEDICATIONS: 1. Metoprolol succinate. 2. Daily vitamin. 3. Simvastatin. 4. Mirtazapine. 5. Potassium chloride. 6. Eliquis. 7. Furosemide. 8. Iron. 9. Donepezil. PHYSICAL EXAMINATION: GENERAL: The patient appears well developed, well nourished, and is in no acute distress. She is resting comfortably on stretcher. VITAL SIGNS: Temperature 98.6, pulse 60, blood pressure 148/84, respirations 14, O2 saturation 98% on room air. HEENT: Normocephalic and atraumatic. Pupils are equal, round, and reactive to light. Sclerae without icterus. Oropharynx is clear. Mucous membranes moist. No cheilitis. NECK: Supple without lymphadenopathy. CARDIAC: Regular rate and rhythm. LUNGS: Clear to auscultation bilaterally without wheezes, rales, or rhonchi. ABDOMEN: Soft, nontender, nondistended. Normoactive bowel sounds present. No guarding or rigidity. No renal angle tenderness. EXTREMITIES: Bilateral lower extremities notable for +3 pitting edema extending from feet to upper thighs, pallor of bilateral feet. Both pedal pulses present. The patient states this is her baseline. NEURO: No focal deficits. SKIN: Without rash or jaundice. LABORATORY DATA: White blood count 6.5, hemoglobin 13.7, hematocrit , platelets 166. D-dimer 1.15. Sodium 134, potassium 4.2, chloride 98, BUN 12, creatinine 0.83, GFR 65, glucose 91, calcium 9.7, total bilirubin 1.4, AST 21, ALT 18, alkaline phosphatase 93. CK 51, troponin 0.026. BNP 474.2. Serum protein 7.4, albumin 3.9, lipase 16. IMAGING DATA: 1. As mentioned above in HPI. She had a CT scan. Findings above. 2. Chest x-ray showed no acute cardiopulmonary process. IMPRESSION AND PLAN: Ms. Griffith is a pleasant 83-year-old woman, who is being admitted for management of the followin. Increasing shortness of breath. She does have a history of congestive heart failure and presenting with bilateral lower extremity edema. There was a minimal amount of fluid seen in the fissure of the right lung. Otherwise, no evidence of fluid overload in the lungs. The patient has been started on Lasix in the ER. She is not short of breath at rest. She does have a history of a permanent pacemaker and a history of aortic valve replacement. BNP elevated at 447. We will continue to monitor for improvement given the fact she has been started on Lasix. She could have just general deconditioning from recent viral illness given the fact that the patient describes more of a gradual onset over the last several weeks rather than acute finding. Investigations have shown no evidence of PE as a potential cause for her shortness of breath. She has no other associated symptoms. No cardiac investigations on file, the patient does not recall the last echocardiogram. Day Team to decide if a repeat echo indicated. 2. Hypertension. Resume home medications and monitor blood pressure. 3. Daily alcohol use. Initiate YSABEL protocol. It does not appear from the patient's history that she has had any issues with withdrawal in the past; however, we will continue to monitor. Of note, bilirubin is mildly raised at 1.4. We will monitor and obtain direct/indirect bilirubin with morning labs. LFTs otherwise unremarkable. 4. History of deep vein thrombosis. Continue anticoagulation. 5. Code status is DNAR. The patient has appointed her daughter Joseph Alvarez. The patient's case was discussed with Dr. Jo, who agrees upon care as described above. Job ID: [id number]
[2018-12-03 05:52] LABS: Anion Gap 12 mmol/L (10-20); BUN (Urea Nitrogen) 11 mg/dL (9.8-20.1); Calc. Creatinine Clearance 72 mL/min (70-130); Carbon Dioxide 28 mmol/L (23-31); Chloride 99 mmol/L (98-107); Estimated GFR-MDRD 69; Glucose 110 mg/dL (83-110); Potassium 3.7 mmol/L (3.5-5.1); Sodium 135 mmol/L (136-145)
[2018-12-03 06:12] LABS: Eosinophils 5 % (0-10); Hemoglobin 11.6 g/dL (12.0-16.0); Lymphocytes 19 % (21-51); MDiff Complete? YES; Mean Corpuscular HGB CONC 33.4 g/dL (32.0-36.0); Mean Corpuscular Hemoglobin 32.5 pg (27.0-31.0); Mean Corpuscular Volume 97.3 fL (78.0-98.0); Mean Platelet Volume 7.4 fL (7.4-10.4); Monocytes 13 % (0-10); Neutrophil 63 % (42-75); Platelet Count 144 thou/uL (130-400); RBC Distribution Width 13.4 % (11.5-14.5); Red Blood Cell (RBC) Count 3.56 mill/uL (4.20-5.40); White Blood Cell (WBC) Count 4.9 thou/uL (4.8-10.8)
[2018-12-03] MEDS: Famotidine/PF 20 mg/2ml Vial SLOW IVP SCH (08:58)
--- NOTE | 2018-12-03 12:49 | PDOC.PN ---
- Subjective Encounter Start Date: 12/03/18 Encounter Start Time: 12:47 Ms. Griffith was seen today in follow-up of Shortness of breath. She says she is breathing much better. She denies any chest pain. - Objective Resuscitation Status - Order Detail: 12/02/18 19:35 Resuscitation Status Routine Co-Sign Provider: Resuscitation Status: DNAR: NO Resuscitation Discussed with: Patient and daughter MAR Reviewed: Yes Vital Signs & Weight: Vital Signs (12 hours) Temp Pulse Resp BP Pulse Ox 12/03/18 07:45 97 12/03/18 07:27 98.2 F 61 17 125/60 97 12/03/18 03:59 97.4 F L 64 14 137/62 97 Weight Weight 3.055 oz I&O: 12/02/18 12/03/18 12/04/18 06:59 06:59 06:59 Intake Total 280 Output Total 1100 Balance -820 Result Diagrams: 12/03/18 05:23 12/03/18 05:23 Phys Exam - Physical Examination HEENT: PERRLA Respiratory: no wheezing, no rales, no rhonchi, clear to auscultation bilateral Cardiovascular: RRR 2/6 systolic murmur, Gastrointestinal: soft, non-tender, no distention, positive bowel sounds Musculoskeletal: pulses present, edema present + trace pedal edema bilaterally, mild erythema in both legs Neurological: non-focal, normal sensation, moves all 4 limbs Dx/Plan (1) Acute respiratory failure with hypoxia Code(s): J96.01 - ACUTE RESPIRATORY FAILURE WITH HYPOXIA Status: Acute (2) Aortic stenosis Code(s): I35.0 - NONRHEUMATIC AORTIC (VALVE) STENOSIS Status: Chronic Qualifiers: Cardiac valve disease etiology: etiology unspecified Qualified Code(s): I35.0 - Nonrheumatic aortic (valve) stenosis (3) HTN (hypertension) Code(s): I10 - ESSENTIAL (PRIMARY) HYPERTENSION Status: Chronic Qualifiers: Hypertension type: essential hypertension Qualified Code(s): I10 - Essential (primary) hypertension (4) CAD (coronary artery disease) Code(s): I25.10 - ATHSCL HEART DISEASE OF [place] CORONARY ARTERY W/O ANG PCTRS Status: Acute - Plan * Acute respiratory failure due to CHF- preserved EF- continue Lasix * She appears to be close to her baseline- Sje likely can be discharged home later today with close outpatient follow-up. * HTN- blood pressure is stable * CAD- stable
[2018-12-03] MEDS ORDERED: Docusate 100 MG CAP PO PRN (13:30)
[2018-12-03] MEDS ORDERED: Milk Of Magnesia 30 ML UDCUP PO PRN (13:31)
[2018-12-03] MEDS: Apixaban 5 MG TAB PO SCH (19:54)
[2018-12-03] MEDS: Famotidine 20 MG TAB PO SCH (19:55)
[2018-12-03] MEDS ORDERED: Mirtazapine 15 MG TAB PO SCH (21:00)
[2018-12-03] MEDS ORDERED: Donepezil HCl 10 MG TAB PO SCH (21:00)
[2018-12-03] MEDS ORDERED: Simvastatin 40 MG TAB PO SCH (21:00)
[2018-12-03] MEDS ORDERED: MIRTAZAPINE 45 MG PO SCH (21:00)
[2018-12-03] MEDS ORDERED: Atorvastatin Calcium 20 MG TAB PO SCH (21:00)
[2018-12-04 01:02] LABS: Lactic Acid 1.1 mmol/L (0.5-2.2)
[2018-12-04 01:04] LABS: Anion Gap 10 mmol/L (10-20); BUN (Urea Nitrogen) 11 mg/dL (9.8-20.1); Calc. Creatinine Clearance 0 mL/min (70-130); Calcium 9.2 mg/dL (7.8-10.44); Carbon Dioxide 28 mmol/L (23-31); Chloride 102 mmol/L (98-107); Estimated GFR-MDRD 68; Glucose 94 mg/dL (83-110); Potassium 3.6 mmol/L (3.5-5.1); Sodium 136 mmol/L (136-145)
[2018-12-04 01:07] LABS: Eosinophils 5 % (0-10); Hemoglobin 12.3 g/dL (12.0-16.0); Lymphocytes 18 % (21-51); MDiff Complete? YES; Mean Corpuscular HGB CONC 33.1 g/dL (32.0-36.0); Mean Corpuscular Hemoglobin 32.4 pg (27.0-31.0); Mean Platelet Volume 7.3 fL (7.4-10.4); Monocytes 9 % (0-10); Neutrophil 66 % (42-75); Platelet Count 155 thou/uL (130-400); RBC Distribution Width 13.6 % (11.5-14.5); Red Blood Cell (RBC) Count 3.81 mill/uL (4.20-5.40); White Blood Cell (WBC) Count 5.4 thou/uL (4.8-10.8)
[2018-12-04 08:04] VITALS: TEMP 98
[2018-12-04] MEDS: Apixaban 5 MG TAB PO SCH (08:59)
[2018-12-04] MEDS ORDERED: Ferrous Sulfate 325 MG TAB PO SCH (09:00)
[2018-12-04] MEDS ORDERED: [UNRECOGNIZED DRUG - OTHER] PO SCH (09:00)
[2018-12-04] MEDS: Famotidine 20 MG TAB PO SCH (09:00)
[2018-12-04] MEDS ORDERED: Furosemide 40 MG TAB PO SCH (09:00)
[2018-12-04] MEDS ORDERED: FOLIC PO SCH (09:00)
[2018-12-04] MEDS ORDERED: MULTIVIT CALC MINS PO SCH (09:00)
[2018-12-04] MEDS ORDERED: Non-Formulary Item 1 EACH (Iron [Iron] 65 MG) PO SCH (09:00)
[2018-12-04] MEDS ORDERED: MULTIVITAMIN PO SCH (09:00)
[2018-12-04] MEDS ORDERED: Potassium Chloride 20 MEQ TAB PO SCH (09:00)
[2018-12-04] MEDS ORDERED: IRON PO SCH (09:00)
[2018-12-04] MEDS ORDERED: Multivitamin W/ Minerals 1 TAB PO SCH (09:00)
--- NOTE | 2018-12-04 11:36 | PDOC.PN ---
- Subjective Encounter Start Date: 12/04/18 Encounter Start Time: 11:35 Ms. Griffith was seen today in follow-up of CHF exacerbation. She does not have any complaints today. She is breathing better. - Objective Resuscitation Status - Order Detail: 12/02/18 19:35 Resuscitation Status Routine Co-Sign Provider: Resuscitation Status: DNAR: NO Resuscitation Discussed with: Patient and daughter CHULA Reviewed: Yes Vital Signs & Weight: Vital Signs (12 hours) Temp Pulse Resp BP Pulse Ox 12/04/18 07:15 98.0 F 61 20 194/78 H 95 12/04/18 03:02 97.6 F 67 20 141/63 H 99 Weight Weight 189 lb 8 oz I&O: 12/03/18 12/04/18 12/05/18 06:59 06:59 06:59 Intake Total 280 840 Output Total 1100 1200 Balance -820 -360 Result Diagrams: 12/04/18 00:37 12/04/18 00:37 Phys Exam - Physical Examination HEENT: PERRLA Respiratory: no wheezing, no rales, no rhonchi, clear to auscultation bilateral Cardiovascular: RRR, no significant murmur, no rub Gastrointestinal: soft, non-tender, no distention, positive bowel sounds Musculoskeletal: no edema, pulses present Neurological: non-focal, moves all 4 limbs Dx/Plan (1) Acute respiratory failure with hypoxia Code(s): J96.01 - ACUTE RESPIRATORY FAILURE WITH HYPOXIA Status: Acute (2) Aortic stenosis Code(s): I35.0 - NONRHEUMATIC AORTIC (VALVE) STENOSIS Status: Chronic Qualifiers: Cardiac valve disease etiology: etiology unspecified Qualified Code(s): I35.0 - Nonrheumatic aortic (valve) stenosis (3) HTN (hypertension) Code(s): I10 - ESSENTIAL (PRIMARY) HYPERTENSION Status: Chronic Qualifiers: Hypertension type: essential hypertension Qualified Code(s): I10 - Essential (primary) hypertension (4) CAD (coronary artery disease) Code(s): I25.10 - ATHSCL HEART DISEASE OF [place] CORONARY ARTERY W/O ANG PCTRS Status: Acute - Plan * Acute on chronic CHF- clinically improved * HTN- blood pressure is a bit labile- but this can be further managed as an outpatient * CAD- stable. * Stable for discharge home
[2018-12-04 12:08] VITALS: BP 150/78
--- NOTE | 2018-12-05 00:35 | DIS ---
DATE OF ADMISSION: 12/02/2018 DATE OF DISCHARGE: 12/04/2018 PRIMARY CARE PHYSICIAN: Dr. Ackerman. DISCHARGE DISPOSITION: Home. PRIMARY DISCHARGE DIAGNOSES: 1. Congestive heart failure exacerbation. 2. Acute respiratory failure secondary to congestive heart failure exacerbation. 3. Hypertension. 4. Hyperlipidemia. 5. Coronary artery disease. 6. History of pacemaker placement. DISCHARGE MEDICATIONS: 1. Eliquis 5 mg twice daily. 2. Simvastatin 40 mg at bedtime. 3. K-Dur 20 mEq daily. 4. Multivitamin once a day. 5. Multivitamin with calcium and minerals one tablet daily. 6. Mirtazapine 45 mg at bedtime. 7. Toprol-XL 25 mg daily. 8. Iron 65 mg daily. 9. Lasix 40 mg daily. 10. Aricept 10 mg at bedtime. PROCEDURES DONE DURING THE ADMISSION: The patient had a CT angiogram of the chest showing no evidence of pulmonary emboli. CODE STATUS: DNAR. ALLERGIES: NO KNOWN DRUG ALLERGIES. HOSPITAL COURSE: Ms. Griffith is a very pleasant 83-year-old female, who presented to the emergency room with complaints of shortness of breath. She was found to have pulmonary vascular congestion on chest x-ray. She was admitted and treated for CHF exacerbation. She responded to IV Lasix and improved overnight and was able to be discharged home the following day. Her blood pressure was a bit labile during the hospital stay, but improved and this can be further managed in the outpatient setting. The patient will be discharged home with home health and it will be [facility] and she will need close outpatient followup. She already has an appointment scheduled for early December with Dr. Nunez. Job ID: [id number]
== END 2018-12-04 14:17 | disposition home health service (06) | DRG 291 ==
LOC: ERS 13:34 → 2NO 18:12
PROVIDERS: ADMIT Emergency Medicine; ATTEND Emergency Medicine
DX: I13.0 Hypertensive heart and chronic kidney disease with heart failure and stage 1 through stage 4 chronic kidney disease, or unspecified chronic kidney disease (principal); J96.01 Acute respiratory failure with hypoxia; I50.33 Acute on chronic diastolic (congestive) heart failure; I25.10 Atherosclerotic heart disease of native coronary artery without angina pectoris; Z66 Do not resuscitate; E78.5 Hyperlipidemia, unspecified; I35.0 Nonrheumatic aortic (valve) stenosis; Z95.0 Presence of cardiac pacemaker; Z72.89 Other problems related to lifestyle; Z79.899 Other long term (current) drug therapy; Z79.01 Long term (current) use of anticoagulants; Z95.2 Presence of prosthetic heart valve; Z86.718 Personal history of other venous thrombosis and embolism
CPT/HCPCS: 36415; 71045; 71275; 80048; 80053; 82550; 83605; 83690; 83880; 84145; 84484; 85025; 85379; 93005; 93798; 96374; J1940; Q9966; S0028